=== PATIENT | female | born 1940 | race Caucasian/White ===

== ENCOUNTER → 2018-01-13 14:43 | Outpatient (CLI) | payer MEDICARE, SELFPAY ==
--- NOTE | 2018-01-13 | DI.MG.S_ITS ---
BILATERAL DIGITAL SCREENING MAMMOGRAM 3D/2D WITH CAD: 01/13/2018 CLINICAL: Routine screening. Comparison is made to exams dated: 12/31/2016 mammogram, 09/12/2015 mammogram, and 06/20/2014 mammogram - [facility]. The tissue of both breasts is predominantly fatty. Current study was also evaluated with a Computer Aided Detection (CAD) system. No significant masses, calcifications, or other findings are seen in either breast. There has been no significant interval change. IMPRESSION: NEGATIVE There is no mammographic evidence of malignancy. A 1 year screening mammogram is recommended. This exam was interpreted at Station ID: [id number]. NOTE: For mammograms, a report in lay terms will be sent to the patient. Approximately 15% of breast malignancies will not be visualized mammographically. In the management of a palpable breast mass, a negative mammogram must not discourage biopsy of a clinically suspicious lesion. Electronically Signed By: Armida [email or web address]:01/13/2018 15:34:14 letter sent: Normal Exam ACR BI-RADS Category 1: Negative [id number]
== END ==
PROVIDERS: PCP Family Medicine; Visit Provider Family Medicine
DX: Z12.31 Encounter for screening mammogram for malignant neoplasm of breast (principal)
CPT/HCPCS: 77063; 77067

== ENCOUNTER 2018-04-01 10:36 | Emergency (ER) | payer MEDICARE, SELFPAY ==
[2018-04-01] VITALS (7 sets, daily range): BP systolic 122–143; BP diastolic 45–60; PULSE 63–95; RESP 12–21; TEMP 36.1; O2SAT 93–95; BMI 32.8
[2018-04-01] MEDS: SODIUM CHLORIDE 0.9% 1,000 ML 1000 ML IV (10:17)
[2018-04-01 10:55] LABS: Add Manual Diff / Slide Review NO; Basophils Percent Auto 0.8 % (0-2); Hematocrit 45.1 % (36-46); Hemoglobin 15.6 g/dL (12.0-16.0); Lymphocytes Percent Auto 22.8 % (25-40); Mean Corpuscular HGB Conc 34.5 % (30-36); Mean Corpuscular Hemoglobin 30.9 PG (26-34); Mean Corpuscular Volume 89.4 fL (80-100); Monocytes Percent Auto 15.6 % (3-14); Neutrophils Absolute Auto 2800 /uL (3000-5900); Neutrophils Percent Auto 54.8 % (50-75); Platelet Count 200 X10^3/uL (150-400); Red Blood Cell Count 5.04 X10^6/uL (4.0-5.2); Red Cell Distribution Width 13.4 % (11.6-14.8)
[2018-04-01 11:01] LABS: Alanine Aminotransferase 108 IU/L (9-52); Albumin 3.7 g/dL (3.5-5.0); Albumin Globulin Ratio 1.2 (1.0-2.8); Alkaline Phosphatase 105 U/L (38-126); Aspartate Aminotransferase 69 IU/L (14-36); BUN Creatinine Ratio 28.8 (6-22); Bilirubin Total 0.7 mg/dL (0.2-1.3); Blood Urea Nitrogen 23 mg/dL (7-17); Calcium 8.9 mg/dL (8.4-10.2); Carbon Dioxide 28 mmol/L (22-32); Chloride 103 mmol/L (98-107); Estimated Glomerular Filt Rate > 60.0 mL/min (>60); Globulin 3.1 g/dL (1.7-4.1); Glucose 119 mg/dL (80-110); HEMOLYSIS 18 (0-50); Lipase 32 U/L (23-300); Potassium 3.8 mmol/L (3.4-5.1); Sodium 142 mmol/L (137-145); Total Protein 6.8 g/dL (6.3-8.2)
--- NOTE | 2018-04-01 11:01 | ED_ITS ---
HPI - Nausea/Vomiting/Diarrhea General Chief complaint: Nausea/Vomiting/Diarrhea Stated complaint: n/v/d x 4 days Time Seen by Provider: 04/01/18 11:01 Source: patient Mode of arrival: EMS Limitations: no limitations History of Present Illness HPI Narrative: 77-year-old female here for evaluation of 3-4 days of nausea vomiting diarrhea and decreased appetite. No recent travel. Does take an antibiotic on a regular basis. No abdominal pain. No blood in her stool. States she has not eaten anything in the past couple days secondary to the nausea. Has very had very little oral intake of fluids. No fevers. Does not have any nausea medication at home. States she felt very lightheaded this morning and had some tingling in her fingers. Related Data Home Medications Medication Instructions Recorded Confirmed alprazolam 0.25 mg PO HS #0 tab 02/26/13 fluticasone 2 spray INTRANASAL QDAY #0 spray 02/26/13 levothyroxine 0.137 mg PO QAM #0 02/26/13 omeprazole 40 mg PO BID #0 cap 02/26/13 oxybutynin chloride 5 mg PO BID #0 07/29/16 albuterol sulfate [Proventil HFA] 1 puff INH PRN #0 08/18/16 aspirin 4 tab PO QDAY #0 08/18/16 clobetasol 1 adryan TOPICAL BIDP PRN #0 08/18/16 diphenoxylate-atropine 1 tab PO PRN PRN #0 08/18/16 furosemide 20 mg PO QDAY #0 08/18/16 hyoscyamine sulfate 0.25 mg BID #0 08/18/16 loratadine [Claritin] 10 mg PO QDAY #0 08/18/16 ofloxacin 1 drp OPHTH PRN #0 08/18/16 propranolol 20 mg PO TID #0 08/18/16 [DHEA] 100 mg PO BID #0 01/27/17 [ECHINACEA] 400 mg PO QID #0 01/27/17 [PREGNENOLONE] 50 mg PO QDAY #0 01/27/17 [TRIPLE FLEX] #0 01/27/17 docusate sodium #0 01/27/17 melatonin 10 mg PO HS #0 01/27/17 meloxicam [Mobic] 7.5 mg PO QPM #0 01/27/17 meloxicam [Mobic] 15 tab PO AMCC #0 01/27/17 omega 4-bmg-kmb-fish oil [Fish Oil] 1,000 mg PO BID #0 01/27/17 pseudoephedrine HCl [Sudafed 12 120 mg PO Q12HP PRN #0 01/27/17 Hour] Previous Rx's Medication Instructions Recorded nitroglycerin [Nitrostat] 0.4 mg SUBLINGUAL PRN PRN #100 tab 07/29/16 ondansetron [Zofran ODT] 4 mg PO Q6-8H PRN #10 tab 04/01/18 Allergies Allergy/AdvReac Type Severity Reaction Status Date / Time morphine [MORPHINE] Allergy Unknown Unverified 09/21/17 11:58 oxycodone [OXYCODONE] Allergy Unknown Unverified 09/21/17 11:58 codeine [CODEINE] AdvReac Intermediate VERTIGO Unverified 04/01/18 10:53 hydrocodone [HYDROCODONE] AdvReac Intermediate VERTIGO Unverified 04/01/18 10:53 tramadol [TRAMADOL] AdvReac Intermediate NAUSEA Unverified 04/01/18 10:53 gabapentin AdvReac Mild Doesn't Verified 04/01/18 10:53 work Review of Systems Constitutional Denies fever(s) and Denies headache(s) Eyes Denies change in vision ENT Ears, Nose, Mouth, and Throat: Denies vertigo, Reports dizziness and Denies headache(s) Cardiovascular Denies chest pain, Denies rapid heart rate, Denies irregular heart rhythm, Denies palpitations and Denies dyspnea Respiratory Denies cough and Denies dyspnea Gastrointestinal Gastrointestinal: Denies melena, Denies bloating, Denies hematochezia, Reports change in bowel habits, Denies constipation, Reports diarrhea, Reports nausea and Reports vomiting Genitourinary Denies dysuria Musculoskeletal Denies myalgias, Denies arthralgias and Reports tingling Integumentary/Breasts Denies lesions and Denies rash Neurologic Denies vertigo, Reports dizziness, Denies headache(s) and Reports tingling Endocrine Denies palpitations PFSH Medical History Gastroesophageal reflux disease (Acute) Hypertension (Acute) Hypothyroid (Acute) Surgical History No pertinent past surgical history (Acute) Social History Smoking Status: Current every day smoker Exam Initial Vital Signs Initial Vital Signs: Vital Signs Pulse Rate 63 04/01/18 10:17 Respiratory Rate 19 04/01/18 10:17 Blood Pressure 124/45 L 04/01/18 10:17 Pulse Oximetry 94 04/01/18 10:17 Const General: cooperative, comfortable, well developed, well groomed and No acute distress Orientation: alert, awake and oriented x3 HENMT Head: normal to inspection and normocephalic Mouth: other (Dry mucous membranes) Resp Effort & Inspection: normal respiratory effort Auscultation: clear to auscultation bilaterally Cardio Rate: regular rate Rhythm: regular rhythm Pulses: radial pulses present GI Inspection: non-distended Palpation: soft, No firm and No tender Skin General: no rashes or lesions noted Lesions: no lesions Rashes: no rashes Neuro General: alert, awake and oriented x3 Cognition: normal cognition Speech: speech normal Motor: muscle tone normal throughout Sensory Exam: no sensory deficits noted Extrem General: normal to inspection and capillary refill normal Other: Right lower extremity swollen compared to left lower extremity patient states this is not new Psych Appearance: grossly normal and well kempt Course Orders Ordered: ED Orders 04/01/18 10:10 Complete Blood Count AUTO DIFF Stat Comprehensive Metabolic Panel Stat Lipase Stat 04/01/18 10:29 EKG-12 Lead Routine Discontinued Medications Sodium Chloride (Normal Saline 0.9%) 1,000 mls @ 1,000 mls/hr IV BOLUS ONE Stop: 04/01/18 12:22 Last Infusion: 04/01/18 12:56 Dose: 0 mls/hr Admin: 04/01/18 10:17 Dose: 1,000 mls/hr Ondansetron HCl (Zofran) 4 mg IV NOW ONE Stop: 04/01/18 10:50 Last Admin: 04/01/18 12:34 Dose: Vital Signs - 8 hr 04/01/18 10:17 04/01/18 10:39 04/01/18 11:00 Temperature 97 F L Pulse Rate 63 66 Respiratory Rate 19 12 Blood Pressure 124/45 L Blood Pressure [Right Arm] 122/57 L Pulse Oximetry 94 93 04/01/18 11:30 04/01/18 12:00 04/01/18 12:30 Temperature Pulse Rate 72 89 63 Respiratory Rate 14 21 13 Blood Pressure Blood Pressure [Right Arm] 143/51 H 125/49 L 132/60 Pulse Oximetry 95 94 94 04/01/18 13:15 Temperature Pulse Rate 95 H Respiratory Rate 20 Blood Pressure Blood Pressure [Right Arm] 131/45 L Pulse Oximetry 95 MDM - Nausea/Vomiting/Diarrhea Lab Data Attestation: I reviewed the patient's lab results. Result diagrams: 04/01/18 10:10 04/01/18 10:10 Lab Results 04/01/18 04/01/18 Range/Units 10:10 10:10 WBC 5.0 (4.5-11.0) X10^3/uL RBC 5.04 (4.0-5.2) X10^6/uL Hgb 15.6 (12.0-16.0) g/dL Hct 45.1 (36-46) % MCV 89.4 (80-100) fL MCH 30.9 (26-34) PG MCHC 34.5 (30-36) % RDW 13.4 (11.6-14.8) % Plt Count 200 (150-400) X10^3/uL Neut % (Auto) 54.8 (50-75) % Lymph % (Auto) 22.8 L (25-40) % [place] % (Auto) 15.6 H (3-14) % Eos % (Auto) 6.0 H (2-4) % Baso % (Auto) 0.8 (0-2) % Neut # (Auto) 2800 L (4688-2993) /uL Sodium 142 (137-145) mmol/L Potassium 3.8 (3.4-5.1) mmol/L Chloride 103 (98-107) mmol/L Carbon Dioxide 28 (22-32) mmol/L BUN 23 H (7-17) mg/dL Creatinine 0.80 (0.52-1.04) mg/dL Estimated GFR > 60.0 (>60) mL/min BUN/Creatinine Ratio 28.8 H (6-22) Glucose 119 H (80-110) mg/dL Calcium 8.9 (8.4-10.2) mg/dL Total Bilirubin 0.7 (0.2-1.3) mg/dL AST 69 H (14-36) IU/L ALT 108 H (9-52) IU/L Alkaline Phosphatase 105 (38-126) U/L Total Protein 6.8 (6.3-8.2) g/dL Albumin 3.7 (3.5-5.0) g/dL Globulin 3.1 (1.7-4.1) g/dL Albumin/Globulin Ratio 1.2 (1.0-2.8) Lipase 32 (23-300) U/L ECG Data Attestation: I personally reviewed and interpreted this ECG as follows: Prior ECG tracings: available for review Interpretation: Sinus rhythm Ventricular rate is 69 Normal axis Normal QRS Normal QTC One PVC Comparison EKG dated 01/27/2017 Today's EKG unchanged from previous MDM Narrative Medical decision making narrative: Patient stated that she felt much better after fluids here in the emergency department. She was able to tolerate oral intake of crackers and water. She has a benign abdominal exam. Has not had any diarrhea since being here in the emergency department. I do suspect that her symptoms are related to mild dehydration. We did discuss the importance of increasing her fluid intake. No indication for an acute admission to the hospital. She was given return precautions. She expressed understanding and agreement plan. Discharge Plan Departure Patient Disposition: Home Clinical Impression: Dehydration, Diarrhea, Nausea & vomiting Instructions: DI for Dehydration -- Adult, Nausea and Vomiting-Adult Activity Restrictions/Additional Instructions: Increase your fluid intake. Eat a bland diet. Take the nausea medication as directed as needed. Return to the emergency department for any new or worsening symptoms Prescriptions: New ondansetron [Zofran ODT] 4 mg tablet,disintegrating 4 mg PO Q6-8H PRN (Reason: nausea and vomiting) Qty: 10 RF: 0 No Action levothyroxine 137 MCG tablet 0.137 mg PO QAM Qty: 0 RF: 0 fluticasone 16 GM spray,suspension 2 spray Intranasal QDAY Qty: 0 RF: 0 alprazolam 0.25 MG tablet 0.25 mg PO HS Qty: 0 RF: 0 omeprazole 20 MG capsule,delayed release(DR/EC) 40 mg PO BID Qty: 0 RF: 0 oxybutynin chloride 5 MG tablet 5 mg PO BID Qty: 0 RF: 0 nitroglycerin [Nitrostat] 0.4 MG tablet, sublingual 0.4 mg Sublingual PRN PRNQty: 100 RF: 0 loratadine [Claritin] 10 MG tablet 10 mg PO QDAY Qty: 0 RF: 0 hyoscyamine sulfate 0.125 MG tablet 0.25 mg BID Qty: 0 RF: 0 propranolol 10 MG tablet 20 mg PO TID Qty: 0 RF: 0 ofloxacin 0.3 % drops 1 drp OPHTH PRNQty: 0 RF: 0 albuterol sulfate [Proventil HFA] 90 MCG/PUFF HFA aerosol inhaler 1 puff INH PRNQty: 0 RF: 0 furosemide 20 MG tablet 20 mg PO QDAY Qty: 0 RF: 0 aspirin 81 MG tablet,delayed release (DR/EC) 4 tab PO QDAY Qty: 0 RF: 0 diphenoxylate-atropine 2.5 MG/0.025 MG tablet 1 tab PO PRN PRNQty: 0 RF: 0 clobetasol 0.05 % lotion 1 adryan Topical BIDP PRNQty: 0 RF: 0 meloxicam [Mobic] 7.5 MG tablet 15 tab PO AMCC Qty: 0 RF: 0 meloxicam [Mobic] 7.5 MG tablet 7.5 mg PO QPM Qty: 0 RF: 0 pseudoephedrine HCl [Sudafed 12 Hour] 120 MG tablet extended release 120 mg PO Q12HP PRNQty: 0 RF: 0 docusate sodium 100 MG capsule Qty: 0 RF: 0 [DHEA] 100 mg PO BID Qty: 0 RF: 0 [PREGNENOLONE] 50 mg PO QDAY Qty: 0 RF: 0 [TRIPLE FLEX] Qty: 0 RF: 0 omega 9-kxr-wgk-fish oil [Fish Oil] 1,000 MG capsule 1,000 mg PO BID Qty: 0 RF: 0 melatonin 10 MG capsule 10 mg PO HS Qty: 0 RF: 0 [ECHINACEA] 400 mg PO QID Qty: 0 RF: 0
== END 2018-04-01 13:50 | disposition home or self-care (01) ==
PROVIDERS: Emergency Provider Emergency Medicine; PCP Family Medicine
DX: E86.0 Dehydration (principal); R11.2 Nausea with vomiting, unspecified; R19.7 Diarrhea, unspecified
CPT/HCPCS: 36591; 80053; 83690; 85025; 93005; 93010; 96360; 96361; 99283; 99284

== ENCOUNTER → 2018-06-27 14:09 | Outpatient (CLI) | payer MEDICARE, SELFPAY ==
--- NOTE | 2018-06-27 | DI.MRI.S_ITS ---
PROCEDURE: MR LUMBAR SPINE WO CON INDICATIONS: LOW BACK PAIN TECHNIQUE: Noncontrast sagittal T1 spin echo and T2 fast echo, sagittal STIR, axial T1 and T2 fast spin echo through the lumbar spine. In this patient, coronal T2-weighted images were also performed. COMPARISON: [facility], MR, L-SPINE WITHOUT CONTRAST, 11/05/2015, 14:15. [facility], MR, L-SPINE WITHOUT CONTRAST, 11/16/2012, 7:51. [facility], MR, L-SPINE WITHOUT CONTRAST, 04/25/2015, 18:08. FINDINGS: Image quality: Excellent. Alignment and Curvature: There is mild grade 1 anterolisthesis at the L3-L4 level, as before. No definite associated pars defects can be seen. Mild dextroconvex scoliotic curvature is seen. Bone Marrow: Marrow is of normal overall signal. Within the L3 vertebral body anteriorly, there is a stable focus seen that is hypointense on T1-weighted and T2-weighted imaging and minimally hyperintense on STIR imaging. This has minimally progressed compared to 2013. No acute vertebral body compression fractures. Spinal Cord: Conus medullaris terminates at the L1 level. Visualized cord demonstrates normal signal and size. Paraspinous Soft Tissues: No paravertebral masses. T12-L1: Normal appearance. L1-L2: The disc height is well-preserved. Loss of disc signal is seen at this level. Mild generalized disc bulge is seen. Minimal bilateral neural foraminal narrowing is seen. No significant central canal narrowing is seen. When comparison is made with the prior examination, these findings are similar. L2-L3: The disc height is well-preserved. Loss of disc signal is seen at this level. Moderate disc bulge is seen, which is eccentric to the right. Moderate facet hypertrophy is seen, with associated moderate hypertrophy of the ligamentum flavum. There is mild to moderate left-sided and severe right-sided neural foraminal narrowing seen. Mild central canal narrowing is seen. L3-L4: The disc height is well-preserved. Loss of disc signal is seen at this level. Moderate disc bulge is seen, which is eccentric to the right. Moderate facet hypertrophy is seen, with associated moderate hypertrophy of the ligamentum. There is a synovial cyst seen along the medial aspect of the right facet, as on series 6 image 20 that measures 8 mm. The synovial cyst has developed since 2015. There is associated moderate central canal narrowing. Moderate bilateral neural foraminal narrowing is seen, left worse than right. L4-L5: The disc height is well-preserved. Loss of disc signal is seen at this level. Mild generalized disc bulge is seen. Moderate to prominent facet hypertrophy is seen. [id number]-[id number] bilateral neural foraminal narrowing is seen. No significant central canal narrowing is seen. When comparison is made with the prior examination, these findings are similar. L5-S1: Mild loss of disc height is seen. Loss of disc signal is seen. Moderate disc bulge is seen, which is eccentric to the right. Moderate facet joint hypertrophy is seen. Moderate bilateral neural foraminal narrowing is seen. Mild central canal narrowing is seen. When comparison is made with the prior examination, these findings are similar. IMPRESSION: Multiple levels of lumbar spine degenerative change are seen, which are relatively similar when compared to the 2016 images. However, there has been interval development of a right-sided synovial cyst at the L3-L4 level. Minimal progression of a bone marrow lesion at L3 level. Differential diagnosis for this lesion includes a metastasis. At clinical discretion, please consider a whole body nuclear medicine bone scan for further evaluation. Dictated by: Dharmesh Cardsoo M.D. on 06/27/2018 at 15:08 Approved by: Dharmesh Cardoso M.D. on 06/27/2018 at 15:20
== END ==
PROVIDERS: PCP Family Medicine; Visit Provider Family Medicine
DX: M54.5 Low back pain (principal); M47.816 Spondylosis without myelopathy or radiculopathy, lumbar region; M71.38 Other bursal cyst, other site; D75.9 Disease of blood and blood-forming organs, unspecified
CPT/HCPCS: 72148

== ENCOUNTER 2019-03-01 10:21 | Emergency (ER) | payer MEDICARE, SELFPAY ==
[2019-03-01 10:25] VITALS: BP 137/78; PULSE 67; RESP 20; TEMP 36.7; O2SAT 97
[2019-03-01 11:02] VITALS: BP 101/52; PULSE 68; RESP 16; O2SAT 93
--- NOTE | 2019-03-01 11:19 | DI.RAD.S_ITS ---
PROCEDURE: XR CHEST 1V INDICATIONS: chest pain TECHNIQUE: One view of the chest was acquired. COMPARISON: [facility], , CHEST 1 VIEW, 01/27/2017, 14:46. FINDINGS: Surgical changes and devices: Cervical fixation plate and screws. Lungs and pleura: Minimal increased vascularity. No pleural effusions or pneumothorax. Mediastinum: Mediastinal contours appear normal. Heart size is normal. Bones and chest wall: No suspicious bony lesions. Overlying soft tissues appear unremarkable. IMPRESSION: Minimal increased vascularity possibly related to vascular crowding or edema. Dictated by: Tamera Byrne M.D. on 03/01/2019 at 11:53 Approved by: Tamera Byrne M.D. on 03/01/2019 at 11:54
[2019-03-01 11:33] LABS: Add Manual Diff / Slide Review NO; Basophils Absolute Auto 0 /uL (0-100); Basophils Percent Auto 0.6 % (0-2); Eosinophils Absolute Auto 300 /uL (0-450); Eosinophils Percent Auto 5.5 % (2-4); Hematocrit 44.4 % (36-46); Hemoglobin 15.4 g/dL (12.0-16.0); Lymphocytes Absolute Auto 1100 /uL (1100-4500); Lymphocytes Percent Auto 22.5 % (25-40); Mean Corpuscular HGB Conc 34.6 % (30-36); Mean Corpuscular Hemoglobin 31.2 PG (26-34); Mean Corpuscular Volume 90.1 fL (80-100); Monocytes Absolute Auto 700 /uL (0-900); Monocytes Percent Auto 14.9 % (3-14); Neutrophils Absolute Auto 2800 /uL (1500-7000); Neutrophils Percent Auto 56.5 % (50-75); Platelet Count 189 X10^3/uL (150-400); Red Blood Cell Count 4.93 X10^6/uL (4.0-5.2); Red Cell Distribution Width 13.4 % (11.6-14.8)
--- NOTE | 2019-03-01 11:41 | ED.CHESTPAIN ---
HPI - Chest Pain General Chief Complaint: Chest Pain Stated Complaint: chest pain Time Seen by Provider: 03/01/19 10:32 Source: patient Mode of arrival: Ambulatory Limitations: no limitations History of Present Illness HPI narrative: Patient comes emergency department complaining episodes of chest pain that have been happening over the last month or so. She states she had these a few years back, but they seem to go away for awhile. She states that she was told her pain was due to esophageal spasm, and that it usually goes away when she drinks water. She does, however, have nitroglycerin, which she was given when she was having the episodes a couple of years ago. She states it is , but she still feels as though it works. However, did not seem to help today. Patient states that she has had substernal chest pain which does not radiate. She denies any associated symptoms, such as shortness of breath, nausea, and diaphoresis. No lightheadedness. Patient denies any pain currently and states this completely resolved. Today's episode started at 9:30 a.m., and patient came to the emergency department because it did not seem like the pain was resolving as quickly as usual. Related Data Home Medications Medication Instructions Recorded Confirmed alprazolam 0.25 mg PO TID PRN #0 tab 02/26/13 03/01/19 fluticasone propionate 1 spray INTRANASAL BID #0 spray 02/26/13 03/01/19 oxybutynin chloride 5 mg PO BID #0 07/29/16 03/01/19 aspirin 4 tab PO DAILY #0 08/18/16 03/01/19 furosemide 20 mg PO DAILY #0 08/18/16 03/01/19 loratadine [Claritin] 10 mg PO DAILY #0 08/18/16 03/01/19 propranolol 20 mg PO TID #0 08/18/16 03/01/19 [PREGNENOLONE] 50 mg PO DAILY #0 01/27/17 03/01/19 echinacea 400 mg PO QID #0 01/27/17 03/01/19 glucosamine RVr-jmv-tvytreoaxu 2 tab PO DAILY #0 01/27/17 03/01/19 [TripleFlex] melatonin 10 mg PO BEDTIME PRN #0 01/27/17 03/01/19 meloxicam [Mobic] 7.5 mg PO QPM #0 01/27/17 03/01/19 meloxicam [Mobic] 15 tab PO AMCC #0 01/27/17 03/01/19 omega 0-feg-htz-fish oil [Fish Oil] 1,000 mg PO BID #0 01/27/17 03/01/19 prasterone (dhea) [DHEA] 100 mg PO DAILY #0 01/27/17 03/01/19 pseudoephedrine HCl [Sudafed 12 120 mg PO Q12HP PRN #0 01/27/17 03/01/19 Hour] albuterol sulfate [ProAir HFA] 2 puff INHALATION Q4H PRN 03/01/19 03/01/19 ascorbic acid (vitamin C) 1 g PO Q6H 03/01/19 03/01/19 calcium carbonate-vitamin D3 4 tab PO DAILY 03/01/19 03/01/19 cholecalciferol (vitamin D3) 15,000 unit PO DAILY 03/01/19 03/01/19 [Vitamin D3] cyanocobalamin (vitamin B-12) 2,000 mcg PO DAILY 03/01/19 03/01/19 [Vitamin B-12] gabapentin 100 mg PO TID 03/01/19 03/01/19 ketoconazole 1 applic TOPICAL DAILY PRN 03/01/19 03/01/19 levothyroxine 125 mcg PO DAILY 03/01/19 03/01/19 meclizine 25 mg PO Q8H PRN 03/01/19 03/01/19 multivitamin with minerals 1 tab PO DAILY 03/01/19 03/01/19 omeprazole 40 mg PO BID 03/01/19 03/01/19 ranitidine HCl 150 mg PO BEDTIME 03/01/19 03/01/19 Allergies Allergy/AdvReac Type Severity Reaction Status Date / Time morphine [MORPHINE] Allergy Unknown Unverified 09/21/17 11:58 oxycodone [OXYCODONE] Allergy Unknown Unverified 09/21/17 11:58 codeine [CODEINE] AdvReac Intermediate VERTIGO Unverified 04/01/18 10:53 hydrocodone [HYDROCODONE] AdvReac Intermediate VERTIGO Unverified 04/01/18 10:53 tramadol [TRAMADOL] AdvReac Intermediate NAUSEA Unverified 04/01/18 10:53 gabapentin AdvReac Mild Doesn't Verified 04/01/18 10:53 work Review of Systems Constitutional Constitutional: Denies chills, Denies fatigue, Denies fever(s), Denies frequent falls, Denies lethargy and Denies weakness Eyes Eyes: Denies change in vision, Denies eye discharge, Denies irritation and Denies loss of vision ENT Ears, Nose, Mouth, and Throat: Denies change in voice, Denies dizziness, Denies neck pain, Denies sore throat and Denies throat swelling Cardiovascular Cardiovascular: Reports chest pain, Denies irregular heart rhythm, Denies lightheadedness, Denies palpitations, Denies dyspnea, Denies dyspnea on exertion and Denies orthopnea Respiratory Respiratory: Denies cough, Denies dyspnea, Denies dyspnea on exertion and Denies wheezing Gastrointestinal Gastrointestinal: Denies abdominal pain, Denies change in bowel habits, Denies diarrhea, Denies nausea and Denies vomiting Genitourinary Genitourinary: Denies hematuria, Denies flank pain, Denies urinary incontinence and Denies urinary urgency Musculoskeletal Musculoskeletal: Denies back pain, Denies muscle weakness, Denies neck pain, Denies numbness and Denies tingling Integumentary/Breasts Skin/Breast: Denies pruritus, Denies erythema, Denies rash and Denies wounds Neurologic Neurologic: Denies behavioral changes, Denies confusion, Denies dizziness, Denies frequent falls, Denies loss of vision, Denies numbness, Denies tingling and Denies weakness Psychiatric Psychiatric: Denies anxiety, Denies behavioral changes, Denies confusion, Denies depression, Denies homicidal ideation and Denies suicidal ideation Endocrine Endocrine: Denies fatigue, Denies flushing and Denies palpitations Hematologic/Lymphatic Hematologic/Lymphatic: Denies easy bruising Allergic/Immunologic Allergic/Immunologic: Denies urticaria, Denies throat swelling and Denies wheezing PFSH Medical History Gastroesophageal reflux disease (Acute) Hypertension (Acute) Hypothyroid (Acute) Surgical History No pertinent past surgical history (Acute) Social History Smoking Status: Current every day smoker Social History Smoking Status: Current every day smoker Exam Initial Vital Signs Initial Vital Signs: Vital Signs Temperature 98.1 F 03/01/19 10:25 Pulse Rate 67 03/01/19 10:25 Respiratory Rate 20 03/01/19 10:25 Blood Pressure 137/78 03/01/19 10:25 Pulse Oximetry 97 03/01/19 10:25 Const General: cooperative and well developed Nutritional Appearance: well nourished Orientation: alert, awake, oriented x3 and not confused [facility] Head: normocephalic and atraumatic Ears: external ears normal Nose: external nose normal and No nasal discharge Face and sinus: face symmetric and No dry mucous membranes Mouth: oral mucosae normal and moist mucous membranes Teeth and gingiva: dentition normal Eyes General: appearance normal, both eyes and all related structures Eyelids: eyelids normal Conjunctivae: conjunctivae normal Sclera: sclerae normal Pupils: PERRL EOM: EOM intact bilaterally Neck Neck: normal visual inspection, trachea midline, No lymphadenopathy, No midline deformity and No JVD Lymphatic: No lymphedema Chest Chest: normal inspection of the chest Resp Effort & Inspection: normal respiratory effort, able to speak in complete sentences, no respiratory distress and no use of accessory muscles Auscultation: clear to auscultation bilaterally, no rales, no rhonchi and no wheezes Cardio Rate: regular rate Rhythm: regular rhythm Heart Sounds: no click, no gallops, no murmurs and no rubs Pulses: normal peripheral pulses GI Inspection: non-distended Palpation: soft, no hepatosplenomegaly, No guarding, No pulsatile mass and No tender Auscultation: normal bowel sounds Back/Spine/Pelvis Back: No CVA tenderness Cervical Spine: cervical ROM normal and No pain with cervical ROM Thoracic/Lumbar Spine: thoracic and lumbar spine normal to inspection Skin General: no rashes or lesions noted, No jaundice and No petechiae Neuro General: alert, oriented x3, gait normal and no focal motor deficits Speech: speech normal Extrem General: full ROM, no clubbing, cyanosis or edema, no pedal edema and no calf tenderness Psych Appearance: well kempt Mental Status: mental status grossly normal Attitude: cooperative Thought Content: normal and suicidality Judgment: judgment good Course Course Course Narrative: Patient was feeling much better upon evaluation, and pain episodes were chronic. Her EKG was unremarkable for acute changes. She was worked up with laboratory studies, which were unremarkable. I have discussed with the patient that she will need to follow up with her primary care physician to discuss further management and workup of her symptoms. She may need to have another stress test done. We have discussed home management of the symptoms, as well as the usual indications for return. Orders Ordered: ED Orders 03/01/19 11:19 XR chest 1V Stat 03/01/19 11:20 Complete Blood Count AUTO DIFF Stat Comprehensive Metabolic Panel Stat Troponin & CK Cardiac Panel Stat Vital Signs Vital signs: Vital Signs - 8 hr 03/01/19 12:53 Pulse Rate 76 Respiratory Rate 16 Blood Pressure 110/56 L Pulse Oximetry 97 MDM - Chest Pain Medical Records Data Attestation: I reviewed the patient's medical records. Lab Data Attestation: I reviewed the patient's lab results. Result diagrams: 03/01/19 11:20 03/01/19 11:20 Labs: Lab Results 03/01/19 03/01/19 Range/Units 11:20 11:20 WBC 5.0 (4.5-11.0) X10^3/uL RBC 4.93 (4.0-5.2) X10^6/uL Hgb 15.4 (12.0-16.0) g/dL Hct 44.4 (36-46) % MCV 90.1 (80-100) fL MCH 31.2 (26-34) PG MCHC 34.6 (30-36) % RDW 13.4 (11.6-14.8) % Plt Count 189 (150-400) X10^3/uL Neut % (Auto) 56.5 (50-75) % Lymph % (Auto) 22.5 L (25-40) % [place] % (Auto) 14.9 H (3-14) % Eos % (Auto) 5.5 H (2-4) % Baso % (Auto) 0.6 (0-2) % Neut # (Auto) 2800 (1212-8680) /uL Lymph # (Auto) 1100 (5571-3643) /uL [place] # (Auto) 700 (0-900) /uL Eos # (Auto) 300 (0-450) /uL Baso # (Auto) 0 (0-100) /uL Sodium 136 L (137-145) mmol/L Potassium 4.7 (3.4-5.1) mmol/L Chloride 100 (98-107) mmol/L Carbon Dioxide 27 (22-32) mmol/L BUN 25 H (7-17) mg/dL Creatinine 0.80 (0.52-1.04) mg/dL Estimated GFR > 60.0 (>60) mL/min BUN/Creatinine Ratio 31.3 H (6-22) Glucose 101 (80-110) mg/dL Calcium 9.2 (8.4-10.2) mg/dL Total Bilirubin 0.7 (0.2-1.3) mg/dL AST 57 H (14-36) IU/L ALT 36 (9-52) IU/L Alkaline Phosphatase 97 (38-126) U/L Total Creatine Kinase 47 (30-135) U/L CK-MB (CK-2) TNP CK-MB (CK-2) Rel Index TNP Troponin I < 0.012 (0.01-0.034) ng/mL Total Protein 7.1 (6.3-8.2) g/dL Albumin 4.0 (3.5-5.0) g/dL Globulin 3.1 (1.7-4.1) g/dL Albumin/Globulin Ratio 1.3 (1.0-2.8) Imaging Data Chest x-ray: Radiologist's impression: PROCEDURE: XR CHEST 1V INDICATIONS: chest pain TECHNIQUE: One view of the chest was acquired. COMPARISON: [facility], CHEST 1 VIEW, 01/27/2017, 14:46. FINDINGS: Surgical changes and devices: Cervical fixation plate and screws. Lungs and pleura: Minimal increased vascularity. No pleural effusions or pneumothorax. Mediastinum: Mediastinal contours appear normal. Heart size is normal. Bones and chest wall: No suspicious bony lesions. Overlying soft tissues appear unremarkable. IMPRESSION: Minimal increased vascularity possibly related to vascular crowding or edema. Dictated by: Tamera Byrne M.D. on 03/01/2019 at 11:53 Approved by: Tamera Byrne M.D. on 03/01/2019 at 11:54 ECG Data Attestation: I personally reviewed and interpreted this ECG as follows: (See below) Interpretation: Twelve lead EKG performed March 01, 2019 at 10:25 a.m., as follows: Regular ventricular rhythm with a rate of 73 beats per minute MD interval 149 milliseconds QRS duration 105 milliseconds QTC interval 405 milliseconds Occasional ectopy No significant ST T wave changes Interpretation: Normal sinus rhythm with occasional PVCs; inferior VT, probably old; no signs of acute ischemia; abnormal EKG as interpreted by ED MD. Discharge Plan Departure Patient Disposition: Home Clinical Impression: Chest pain Qualifiers: Chest pain type: other chest pain Qualified Code(s): R07.89 - Other chest pain Discharge Date/Time: 03/01/19 12:54 Instructions: DI for Chest Pain Activity Restrictions/Additional Instructions: Your labs look good. There is no evidence of a serious, acute condition at this time. However, it is very important that you follow up with your primary care physician to be sure that your ongoing chest pains are not an indicator of coronary artery disease. There is no evidence of heart attack today, but you may have some blockages that are causing angina. As such, you should speak with primary care about having another stress test done at some point in the near future. It is also very possible that this pain has nothing to do with your heart and may be related to a benign condition such as esophageal spasm. Following up with your doctor can help sort this out. Prescriptions: No Action fluticasone propionate 16 GM spray,suspension 1 spray Intranasal BID Qty: 0 RF: 0 alprazolam 0.25 MG tablet 0.25 mg PO TID PRN (Reason: Anxiety) Qty: 0 RF: 0 oxybutynin chloride 5 MG tablet 5 mg PO BID Qty: 0 RF: 0 loratadine [Claritin] 10 MG tablet 10 mg PO DAILY Qty: 0 RF: 0 propranolol 10 MG tablet 20 mg PO TID Qty: 0 RF: 0 furosemide 20 MG tablet 20 mg PO DAILY Qty: 0 RF: 0 aspirin 81 MG tablet,delayed release (DR/EC) 4 tab PO DAILY Qty: 0 RF: 0 meloxicam [Mobic] 7.5 MG tablet 15 tab PO AMCC Qty: 0 RF: 0 meloxicam [Mobic] 7.5 MG tablet 7.5 mg PO QPM Qty: 0 RF: 0 pseudoephedrine HCl [Sudafed 12 Hour] 120 MG tablet extended release 120 mg PO Q12HP PRN (Reason: Allergy Symptoms) Qty: 0 RF: 0 DHEA 50 mg Tablet 100 mg PO DAILY Qty: 0 RF: 0 glucosamine HWx-xth-dotwofxzge [TripleFlex] 750-375-400 mg Tablet 2 tab PO DAILY Qty: 0 RF: 0 [PREGNENOLONE] powder 50 mg PO DAILY Qty: 0 RF: 0 echinacea 400 mg Capsule 400 mg PO QID Qty: 0 RF: 0 omega 4-shv-pnx-fish oil [Fish Oil] 1,000 MG capsule 1,000 mg PO BID Qty: 0 RF: 0 melatonin 10 MG capsule 10 mg PO BEDTIME PRN (Reason: Sleep) Qty: 0 RF: 0 ascorbic acid (vitamin C) 1,000 mg Tablet 1 g PO Q6H RF: 0 cyanocobalamin (vitamin B-12) [Vitamin B-12] 1,000 mcg Tablet 2,000 mcg PO DAILY RF: 0 omeprazole 40 mg capsule,delayed release(DR/EC) 40 mg PO BID RF: 0 meclizine 25 mg Tablet 25 mg PO Q8H PRN (Reason: Dizziness) RF: 0 levothyroxine 125 mcg Tablet 125 mcg PO DAILY RF: 0 ranitidine HCl 150 mg tablet 150 mg PO BEDTIME RF: 0 gabapentin 100 mg Capsule 100 mg PO TID RF: 0 multivitamin with minerals Tablet 1 tab PO DAILY RF: 0 albuterol sulfate [ProAir HFA] 90 mcg/actuation Hfa Aerosol Inhaler 2 puff INHALATION Q4H PRN (Reason: Shortness Of Breath) RF: 0 ketoconazole 2 % Cream 1 applic TOPICAL DAILY PRN (Reason: as directed) RF: 0 calcium carbonate-vitamin D3 500 mg(1,250mg) -200 unit Tablet 4 tab PO DAILY RF: 0 cholecalciferol (vitamin D3) [Vitamin D3] 5,000 unit Tablet 15,000 unit PO DAILY RF: 0 Referrals: Aakash Bender MD [Primary Care Provider] -
[2019-03-01 11:49] LABS: Alanine Aminotransferase 36 IU/L (9-52); Albumin Globulin Ratio 1.3 (1.0-2.8); Alkaline Phosphatase 97 U/L (38-126); Aspartate Aminotransferase 57 IU/L (14-36); BUN Creatinine Ratio 31.3 (6-22); Bilirubin Total 0.7 mg/dL (0.2-1.3); Blood Urea Nitrogen 25 mg/dL (7-17); Calcium 9.2 mg/dL (8.4-10.2); Carbon Dioxide 27 mmol/L (22-32); Chloride 100 mmol/L (98-107); Creatine Kinase 47 U/L (30-135); Estimated Glomerular Filt Rate > 60.0 mL/min (>60); Globulin 3.1 g/dL (1.7-4.1); Glucose 101 mg/dL (80-110); Potassium 4.7 mmol/L (3.4-5.1); Sodium 136 mmol/L (137-145); Total Protein 7.1 g/dL (6.3-8.2)
[2019-03-01 11:51] LABS: HEMOLYSIS 52 (0-50)
[2019-03-01 12:01] LABS: Troponin I < 0.012 ng/mL (0.01-0.034)
[2019-03-01 12:08] VITALS: BP 104/46; PULSE 61; RESP 16; O2SAT 94
[2019-03-01 12:53] VITALS: BP 110/56; PULSE 76; RESP 16; O2SAT 97
== END 2019-03-01 12:54 | disposition home or self-care (01) ==
PROVIDERS: Emergency Provider Emergency Medicine; PCP Family Medicine
DX: R07.89 Other chest pain (principal)
CPT/HCPCS: 36591; 71045; 80053; 82550; 84484; 85025; 93005; 93041; 99283; 99285

== ENCOUNTER → 2019-04-12 09:03 | Outpatient (CLI) | payer MEDICARE, SELFPAY ==
--- NOTE | 2019-04-12 | DI.NM.S_ITS ---
PROCEDURE: NM SEAMUS PERF SPECT R&S PHARM Rest and pharmacological stress myocardial perfusion SPECT with gated imaging and ejection fraction RADIOPHARMACEUTICAL: 25.4 mCi Tc-99m tetrafosmin IV at rest and 24.6 mCi Tc-99m tetrafosmin IV at peak effect of pharmacological stress. Eol-mfk-ddyqqlcl was performed. INDICATIONS: Chest pain, unspecified TECHNIQUE: Radiopharmaceutical was injected at peak stress test, and also at rest. SPECT images were obtained. SPECT myocardial perfusion images were displayed in short axis, horizontal long axis, and vertical long axis views. Gated images were reviewed using [email or web address] software. COMPARISON: None. CARDIAC STRESS: A pharmacologic stress test was performed under the supervision of an attending staff, using an infusion of lexiscan 0.4mg IV X1. Hemodynamic data: There is normal blood pressure and heart rate response to pharmacologic stress. Symptoms: The patient denied anginal chest pain. Aminophylline: none EKG: No diagnostic changes of ischemia; occasional PVCs present ectopy. FINDINGS: Raw data: There is good myocardial uptake of radiotracer. No significant motion artifacts. Vrks-ew-bnmog ratio is 0.31 (normal is less than 0.38 for tetrafosmin tracer). Left ventricle function: Gated images demonstrate normal left ventricular wall thickening. No segmental wall motion abnormalities. No transient ischemic dilation; TID is 1.06 (normal less than 1.3). Left ventricle resting end diastolic volume is 71 mL. Left ventricle stress ejection fraction is 78%; normal range is above 45%. Myocardial perfusion: There is moderate severe fixed apical defect that suggest prior non-transmural infarction but artifact can't be excluded. No ischemia. Prone images not obtained as the patient is unable to do so due to recent back surgery. SSS 6. IMPRESSION: Abnormal pharmaceutical nuclear stress test. No ischemia. 1) Probably prior non-transmural infarct but apical artifact can't be excluded. There is moderate severe fixed apical defect that suggest prior non-transmural infarction but artifact can't be excluded. No ischemia. Prone images not obtained as the patient is unable to do so due to recent back surgery. SSS 6. 2) Normal left ventricular size, wall motion, and systolic function (EF post stress 78%). 3) No ECG evidence of ischemia. 4) No angina during the study. 5) Compared to the nuc stress done 08/16/2016, fixed apical defect is more pronounced on this study. Dictated by: Wei Valle MD on 04/13/2019 at 12:17 Approved by: Wei Valle MD on 04/13/2019 at 12:22
--- NOTE | 2019-04-12 10:46 | PM.TREADMILL ---
Cardiac Stress Test Report Referral & Results Date Patient Seen: 04/12/19 Requesting provider: Christina Padron Indication: Chest discomfort Rest ECG: Unremarkable, frequent PVCs Procedure Note: After both written and verbal informed consent the patient had an IV started by the diagnostic imaging RN, and then was hooked up to the treadmill monitoring system. The Lexiscan material, and then the Cardiolite tracer, were administered sequentially. An additional 3 min was spent monitoring the patient while supine on the gurney. The patient had a normal response to all infused materials. Impression: Frequent PVCs that were multifocal in origin Please see perfusion imaging report for details regarding possible ischemia Please note: Actual ECG tracings can be found in the PACS system.
== END ==
PROVIDERS: Family Provider Family Medicine; PCP Family Medicine; Visit Provider Nurse Practitioner Family
DX: R07.89 Other chest pain (principal); R94.39 Abnormal result of other cardiovascular function study
CPT/HCPCS: 78452; 93016; 93017; 93018; A9502; J2785

== ENCOUNTER → 2019-05-23 09:31 | Outpatient (CLI) | payer MEDICARE, SELFPAY ==
--- NOTE | 2019-05-23 | DI.MG.S_ITS ---
BILATERAL DIGITAL SCREENING MAMMOGRAM 3D/2D WITH CAD: 05/23/2019 CLINICAL: Routine screening. Comparison is made to exams dated: 01/13/2018 mammogram, 12/31/2016 mammogram, and 09/12/2015 mammogram - [facility]. The tissue of both breasts is predominantly fatty. Current study was also evaluated with a Computer Aided Detection (CAD) system. No significant masses, calcifications, or other findings are seen in either breast. There has been no significant interval change. IMPRESSION: NEGATIVE There is no mammographic evidence of malignancy. A 1 year screening mammogram is recommended. This exam was interpreted at Station ID: [id number]. NOTE: For mammograms, a report in lay terms will be sent to the patient. Approximately 15% of breast malignancies will not be visualized mammographically. In the management of a palpable breast mass, a negative mammogram must not discourage biopsy of a clinically suspicious lesion. Electronically Signed By: Marvin charles/[email or web address]:05/23/2019 16:37:13 letter sent: Normal Exam ACR BI-RADS Category 1: Negative [id number]
== END ==
PROVIDERS: PCP Family Medicine; Visit Provider Family Medicine
DX: Z12.31 Encounter for screening mammogram for malignant neoplasm of breast (principal)
CPT/HCPCS: 77063; 77067

== ENCOUNTER → 2019-11-29 16:38 | Outpatient (CLI) | payer MEDICARE, SELFPAY ==
--- NOTE | 2019-11-29 | DI.RAD.S_ITS ---
PROCEDURE: XR HIP W PEL IF DONE LT 2V INDICATIONS: LT HIP PAIN TECHNIQUE: AP pelvis with lateral view(s) of the left hip(s). COMPARISON: [facility], , XR PELVIS W LATERAL HIP LT, 01/01/2016, 14:41. FINDINGS: Bones: No fractures or dislocations. Pelvic ring appears intact. No suspicious bony lesions. Lower lumbar spondylosis. Moderate bilateral hip joint degeneration. Soft tissues: The visualized bowel gas pattern is normal. No suspicious soft tissue calcifications. IMPRESSION: Moderate bilateral hip joint degeneration, which is mildly progressed since 01/01/16.. Dictated by: Fredrick Early M.D. on 11/29/2019 at 17:19 Approved by: Fredrick Early M.D. on 11/29/2019 at 17:21
--- NOTE | 2019-11-29 | DI.RAD.S_ITS ---
PROCEDURE: XR LUMBAR SPINE 2-3V INDICATIONS: LOWER BACK PAIN TECHNIQUE: 3 views of the lumbar spine were acquired. COMPARISON: [facility], , L-SPINE MINIMUM 4 VIEWS, 05/30/2015, 12:01. FINDINGS: Bones: No fracture or focal osseous destruction. Multilevel degenerative endplate sclerosis and spurring. Diffuse facet arthropathy. Grade 1 anterolisthesis of L4 and L5 moderate narrowing of the L5-S1 and L4-L5 disc space. Lower thoracic disc degeneration also noted. Mild dextroscoliosis. Soft tissues: Scattered vascular calcifications seen in the aorta. IMPRESSION: Lower lumbar spondylosis and facet arthropathy, mildly progressed since prior study. Grade 1 anterolisthesis of L4-L5 as before. Dictated by: Fredrick Early M.D. on 11/29/2019 at 17:17 Approved by: Fredrick Early M.D. on 11/29/2019 at 17:19
== END ==
PROVIDERS: Family Provider Family Medicine; PCP Family Medicine; Referring Provider Family Medicine; Visit Provider Family Medicine
DX: M54.5 Low back pain (principal); M25.552 Pain in left hip; M16.0 Bilateral primary osteoarthritis of hip; M47.816 Spondylosis without myelopathy or radiculopathy, lumbar region; M43.16 Spondylolisthesis, lumbar region
CPT/HCPCS: 72100; 73502

== ENCOUNTER → 2020-02-24 14:56 | Outpatient (CLI) | payer MEDICARE, SELFPAY ==
--- NOTE | 2020-02-24 14:59 | DI.RAD.S_ITS ---
PROCEDURE: XR KNEE RT 3V INDICATIONS: BILATERAL KNEE PAIN TECHNIQUE: 3 views of the knee were acquired. COMPARISON: [facility], , KNEE 3V RIGHT, 08/07/2015, 5:04. FINDINGS: Bones: No fractures or dislocations. No suspicious bony lesions. Tricompartment degenerative change. Moderate medial compartment joint space loss. Progressive patellofemoral degenerative change with lateral patellofemoral joint space obliteration. Soft tissues: No joint effusion. No suspicious soft tissue calcifications. 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 No evidence acute bony abnormality of the right knee. If clinical suspicion and/or symptoms persist, further assessment with repeat plain films, or advanced imaging (e.g., CT, MRI, or bone scan) may be helpful for further assessment. Dictated by: Panfilo Green M.D. on 02/24/2020 at 15:12 Approved by: Panfilo Green M.D. on 02/24/2020 at 15:13
--- NOTE | 2020-02-24 14:59 | DI.RAD.S_ITS ---
PROCEDURE: XR KNEE LT 3V INDICATIONS: BILATERAL KNEE PAIN TECHNIQUE: 3 views of the knee were acquired. COMPARISON: [facility], , KNEE 3V RIGHT, 08/07/2015, 5:04. FINDINGS: Bones: No fractures or dislocations. No suspicious bony lesions. Mild degenerative change. Soft tissues: No joint effusion. No suspicious soft tissue calcifications. IMPRESSION: Mild degenerative change. No evidence acute bony abnormality of the left knee. If clinical suspicion and/or symptoms persist, further assessment with repeat plain films, or advanced imaging (e.g., CT, MRI, or bone scan) may be helpful for further assessment. Dictated by: Panfilo Green M.D. on 02/24/2020 at 15:11 Approved by: Panfilo Green M.D. on 02/24/2020 at 15:12
== END ==
PROVIDERS: Family Provider Family Medicine; PCP Family Medicine; Referring Provider Family Medicine; Visit Provider Family Medicine
DX: M25.561 Pain in right knee (principal); M25.562 Pain in left knee; M17.11 Unilateral primary osteoarthritis, right knee
CPT/HCPCS: 73562

== ENCOUNTER → 2020-03-12 09:25 | Outpatient (CLI) | payer MEDICARE, SELFPAY ==
--- NOTE | 2020-03-12 | DI.MRI.S_ITS ---
PROCEDURE: MR LUMBAR SPINE WO CON INDICATIONS: Dorsalgia, unspecified TECHNIQUE: Noncontrast sagittal T1 spin echo and T2 fast echo, sagittal STIR, axial T1 and T2 fast spin echo through the lumbar spine. In cases with scoliosis, additional coronal T2 fast spin echo may be performed. COMPARISON: [facility], CR, XR LUMBAR SPINE 2-3V, 11/29/2019, 16:36. [facility], MR, L-SPINE WITHOUT CONTRAST, 11/05/2015, 14:15. [facility], MR, MR LUMBAR SPINE WO CON, 06/27/2018, 14:15. FINDINGS: Image quality: Excellent. Alignment and Curvature: There is mild L3-L4 and L4-L5 anterolisthesis secondary to facet hypertrophy. Bone Marrow: Marrow is of normal overall signal. No acute vertebral body compression fractures. Spinal Cord: Conus medullaris terminates at the L1 level. Visualized cord demonstrates normal signal and size. Paraspinous Soft Tissues: No paravertebral masses. L1-L2: Loss of disc signal. Mild, diffuse disc bulge. No central stenosis. Mild bilateral neural foraminal narrowing. No neural compression. L2-L3: Loss of disc signal. Mild, diffuse disc bulge. Mild bilateral facet hypertrophy. Mild ligamentum flavum hypertrophy. Mild narrowing of the central canal. Mild bilateral neural foraminal narrowing. No neural compression. L3-L4: Loss of disc signal. Mild, diffuse disc bulge. Moderate bilateral facet hypertrophy. Mild ligamentum flavum hypertrophy. Moderate narrowing of the central canal. Moderate bilateral neural foraminal narrowing. No neural compression. L4-L5: Loss of disc signal. Mild, diffuse disc bulge. Moderate bilateral facet hypertrophy. Mild to moderate narrowing of the central canal. Mild to moderate bilateral neural foraminal narrowing. No neural compression L5-S1: Loss of disc signal. Mild bilateral facet hypertrophy. No central stenosis. Mild bilateral neural foraminal narrowing. No neural compression. IMPRESSION: 1. Grade 1 L3-L4 and L4-L5 degenerative spondylolisthesis. 2. Multilevel degenerative disease. 3. Multilevel facet arthropathy. 4. No significant central canal narrowing. 5. No significant neural foraminal narrowing. 6. No neural compression. Dictated by: Denise Kaplan MD, PhD on 03/12/2020 at 15:53 Approved by: Denise Kaplan MD, PhD on 03/12/2020 at 15:58
== END ==
PROVIDERS: Family Provider Family Medicine; PCP Family Medicine; Referring Provider Family Medicine; Visit Provider Family Medicine
DX: M54.9 Dorsalgia, unspecified (principal); M51.36 Other intervertebral disc degeneration, lumbar region; M47.816 Spondylosis without myelopathy or radiculopathy, lumbar region; M47.817 Spondylosis without myelopathy or radiculopathy, lumbosacral region; M48.061 Spinal stenosis, lumbar region without neurogenic claudication; M48.07 Spinal stenosis, lumbosacral region; M43.16 Spondylolisthesis, lumbar region; M43.17 Spondylolisthesis, lumbosacral region
CPT/HCPCS: 72148

== ENCOUNTER 2020-07-06 11:21 | Emergency (ER) | payer MEDICARE, SELFPAY ==
[2020-07-06] VITALS (12 sets, daily range): BP systolic 105–173; BP diastolic 58–80; PULSE 54–87; RESP 12–22; TEMP 36.2; O2SAT 93–97; BMI 32.8
--- NOTE | 2020-07-06 11:50 | DI.RAD.S_ITS ---
PROCEDURE: XR CHEST 1V INDICATIONS: chest pain TECHNIQUE: One view of the chest was acquired. COMPARISON: [facility], CR, XR CHEST 1V, 03/01/2019, 11:24. FINDINGS: Overlying EKG wires. Surgical changes and devices: Postsurgical changes of cervical fusion incompletely evaluated. Lungs and pleura: Lungs are clear. No pleural effusions or pneumothorax. Mediastinum: Mediastinal contours appear normal. Heart size is normal. Bones and chest wall: No suspicious bony lesions. Overlying soft tissues appear unremarkable. IMPRESSION: No evidence of an acute cardiopulmonary abnormality. Dictated by: Doug Winston D.O. on 07/06/2020 at 11:08 Approved by: Doug Winston D.O. on 07/06/2020 at 11:08
[2020-07-06 11:56] LABS: Add Manual Diff / Slide Review NO; Basophils Absolute Auto 100 /uL (0-100); Basophils Percent Auto 1.8 % (0-2); Eosinophils Absolute Auto 300 /uL (0-450); Eosinophils Percent Auto 6.3 % (2-4); Hematocrit 44.6 % (36-46); Hemoglobin 14.9 g/dL (12.0-16.0); Lymphocytes Absolute Auto 1500 /uL (1100-4500); Lymphocytes Percent Auto 28.6 % (25-40); Mean Corpuscular HGB Conc 33.5 % (30-36); Mean Corpuscular Hemoglobin 30.2 PG (26-34); Mean Corpuscular Volume 90.2 fL (80-100); Monocytes Absolute Auto 600 /uL (0-900); Monocytes Percent Auto 12.1 % (3-14); Neutrophils Absolute Auto 2700 /uL (1500-7000); Neutrophils Percent Auto 51.2 % (50-75); Platelet Count 219 X10^3/uL (150-400); Red Blood Cell Count 4.95 X10^6/uL (4.0-5.2); Red Cell Distribution Width 13.5 % (11.6-14.8); White Blood Cell Count 5.2 X10^3/uL (4.5-11.0)
[2020-07-06 12:02] LABS: Alanine Aminotransferase 32 IU/L (<35); Albumin 4.1 g/dL (3.5-5.0); Albumin Globulin Ratio 1.3 (1.0-2.8); Alkaline Phosphatase 102 U/L (38-126); Aspartate Aminotransferase 45 IU/L (14-36); BUN Creatinine Ratio 21.2 (6-22); Bilirubin Total 0.4 mg/dL (0.2-1.3); Blood Urea Nitrogen 22 mg/dL (7-17); Calcium 9.3 mg/dL (8.4-10.2); Carbon Dioxide 27 mmol/L (22-32); Chloride 103 mmol/L (98-107); Creatine Kinase 46 U/L (30-135); Estimated Glomerular Filt Rate 51.3 mL/min (>60); Globulin 3.2 g/dL (1.7-4.1); Glucose 128 mg/dL (80-110); HEMOLYSIS < 15 (0-50); Lipase 50 U/L (23-300); Potassium 4.4 mmol/L (3.4-5.1); Sodium 136 mmol/L (137-145); Total Protein 7.3 g/dL (6.3-8.2)
[2020-07-06 12:13] LABS: NT-proBNP (BNP-Adult 18+) 126 pg/mL (<450); Troponin I < 0.012 ng/mL (0.01-0.034)
--- NOTE | 2020-07-06 12:24 | ED_ITS ---
HPI - Chest Pain <JULIA Rendon - Last Filed: 07/06/20 15:02> General Chief Complaint: Chest Pain Stated Complaint: Chest Pain Time Seen by Provider: 07/06/20 11:34 Source: patient Mode of arrival: EMS Limitations: physical limitation History of Present Illness HPI narrative: This is a 80 year female, smoker, who has past medical history significant for disability and uses wheelchair and a walker, hypotension, hypertension (EMR) , hypothyroidism, angina presents to local EMS with with chief complain of resolved non producable mid chest sharp pain. Patient rated pain as 10/10 initially and now it is 0/10. Onset of pain at rest while she was sitting on a chair at 10:25 a.m. and had taken 2 doses of nitroglycerin and full dose of baby aspirin and noticed pain slowly decreased and finally resolved in 20 minutes. Patient denies other cardiac related symptoms such as short of breath, nausea, vomiting, cold sweats. Patient had similar symptoms in the past and had workup done and discharged to home with nitroglycerin for as needed use and thinks her current nitroglycerin medication is . Patient reports chronic right leg swelling. Patient does not have travel rn at this time and is seen Dr. Kulkarni after Dr. Bender retired. Related Data Home Medications Medication Instructions Recorded Confirmed alprazolam 0.25 mg PO TID PRN #0 tab 02/26/13 03/01/19 fluticasone propionate 1 spray INTRANASAL BID #0 spray 02/26/13 03/01/19 oxybutynin chloride 5 mg PO BID #0 07/29/16 03/01/19 aspirin 4 tab PO DAILY #0 08/18/16 03/01/19 furosemide 20 mg PO DAILY #0 08/18/16 03/01/19 loratadine [Claritin] 10 mg PO DAILY #0 08/18/16 03/01/19 propranolol 20 mg PO TID #0 08/18/16 03/01/19 [PREGNENOLONE] 50 mg PO DAILY #0 01/27/17 03/01/19 echinacea 400 mg PO QID #0 01/27/17 03/01/19 glucosamine HLi-emb-azaefbpvmx 2 tab PO DAILY #0 01/27/17 03/01/19 [TripleFlex] melatonin 10 mg PO BEDTIME PRN #0 01/27/17 03/01/19 meloxicam [Mobic] 7.5 mg PO QPM #0 01/27/17 03/01/19 meloxicam [Mobic] 15 tab PO AMCC #0 01/27/17 03/01/19 omega 8-bgg-mxf-fish oil [Fish Oil] 1,000 mg PO BID #0 01/27/17 03/01/19 prasterone (dhea) [DHEA] 100 mg PO DAILY #0 01/27/17 03/01/19 pseudoephedrine HCl [Sudafed 12 120 mg PO Q12HP PRN #0 01/27/17 03/01/19 Hour] albuterol sulfate [ProAir HFA] 2 puff INHALATION Q4H PRN 03/01/19 03/01/19 ascorbic acid (vitamin C) 1 g PO Q6H 03/01/19 03/01/19 calcium carbonate-vitamin D3 4 tab PO DAILY 03/01/19 03/01/19 cholecalciferol (vitamin D3) 15,000 unit PO DAILY 03/01/19 03/01/19 [Vitamin D3] cyanocobalamin (vitamin B-12) 2,000 mcg PO DAILY 03/01/19 03/01/19 [Vitamin B-12] gabapentin 100 mg PO TID 03/01/19 03/01/19 ketoconazole 1 applic TOPICAL DAILY PRN 03/01/19 03/01/19 levothyroxine 125 mcg PO DAILY 03/01/19 03/01/19 meclizine 25 mg PO Q8H PRN 03/01/19 03/01/19 multivitamin with minerals 1 tab PO DAILY 03/01/19 03/01/19 omeprazole 40 mg PO BID 03/01/19 03/01/19 ranitidine HCl 150 mg PO BEDTIME 03/01/19 03/01/19 nitroglycerin 0.4 mg SUBLINGUAL Q5M PRN 07/06/20 07/06/20 Allergies Allergy/AdvReac Type Severity Reaction Status Date / Time morphine [MORPHINE] Allergy Unknown Unverified 09/21/17 11:58 oxycodone [OXYCODONE] Allergy Unknown Unverified 09/21/17 11:58 codeine [CODEINE] AdvReac Intermediate VERTIGO Unverified 04/01/18 10:53 hydrocodone [HYDROCODONE] AdvReac Intermediate VERTIGO Unverified 04/01/18 10:53 tramadol [TRAMADOL] AdvReac Intermediate NAUSEA Unverified 04/01/18 10:53 gabapentin AdvReac Mild Doesn't Verified 04/01/18 10:53 work Review of Systems <JULIA Rendon - Last Filed: 07/06/20 15:02> Review of Systems Narrative: General: Denies fever, chills, fatigue, malaise, sweats. HEENT: Denies sinus pain, ear pain, sore throat, difficulty swallowing, dizziness. Respiratory: Denies dyspnea, cough, wheezing, hemoptysis, sputum. Cardiovascular: See HPI Gastrointestinal: Denies nausea, vomiting, abdominal pain, diarrhea, constipation, melena. : Denies dysuria, frequency, incontinence, hematuria, urinary retention. Skin: Denies rash, skin lesions, or other. Psychiatric: No concerning psychosocial issues. 12-point review of systems is negative except for those stated above. Patient History <JULIA Rendon - Last Filed: 07/06/20 15:02> Medical History (Updated 07/06/20 @ 14:15 by JULIA Rendon) Gastroesophageal reflux disease Hypertension Hypothyroid Surgical History No pertinent past surgical history Social History Smoking Status: Current every day smoker Smoking Status: Current every day smoker Substance Use Type: does not use Exam <JULIA Rendon - Last Filed: 07/06/20 15:02> Narrative Exam Narrative: GEN: Alert, oriented x 3, well appearing and nourished, and in no acute distress. Head: Normal cephalic, atraumatic. No scalp or temporal tenderness, palpable mass or rash. EYES: Pupils are equal, round, and reactive to light and accommodation. Extraoc ular muscles are intact bilaterally. There is no subconjunctival hemorrhage, exudate and sclera non-icteric. ENT: Hearing grossly intact. Mucous membrane moist, no mucosal lesion. Throat without erythema, tonsillar hypertrophy or exudate. Uvula in midline, airway patent. Neck: Trachea in midline. No JVD, non-tender without lymphadenopathy. No masses or thyroid megaly. Supple, non-tender and no meningeal signs. CARDIAC: Normal regular rate and rhythm without murmurs, gallops, or rubs. No chest wall tenderness. No peripheral edema, cyanosis or pallor. Capillary refill is less than 2 seconds. RESPIRATORY: Lungs are clear to auscultate bilaterally. No cough, wheezes, rales, or rhonchi. No stridor, respiratory distress, increase work of breathing, or accessary muscle used. ABD: Abdomen soft, nontender and non-distended. No guarding or rebound tenderness to palpate. Bowel sounds are normal in all 4 quadrants. There is no palpable masses or organomegaly. SKIN: Warm, dry, normal color for patient. No erythema, lesions or rash over visible areas. BACK: Nontender without deformity or crepitance. No flank tenderness. NEUROLOGICAL: Alert and oriented to place, time and person. Sensation and motor function intact bilaterally. No facial droops, dysphasia. PSYCHIATRIC: Good judgement and reason, without hallucinations, abnormal affect or abnormal behaviors during the examination. Patient is not suicidal. Initial Vital Signs Initial Vital Signs: Vital Signs Pulse Rate 66 07/06/20 11:20 Respiratory Rate 16 07/06/20 11:20 Blood Pressure 105/80 07/06/20 11:20 Pulse Oximetry 96 07/06/20 11:20 <Magy Hare DO - Last Filed: 07/06/20 19:03> Initial Vital Signs Initial Vital Signs: Vital Signs Pulse Rate 66 07/06/20 11:20 Respiratory Rate 16 07/06/20 11:20 Blood Pressure 105/80 07/06/20 11:20 Pulse Oximetry 96 07/06/20 11:20 Scores <[facility] - Last Filed: 07/06/20 15:02> GCS Sakshi coma scale eye opening: Spontaneous [place] coma scale verbal response: Orientated Sakshi coma scale motor response: Obey commands Sakshi coma scale total score: 15 HEART Score Heart Score history: Slightly Suspicious Heart Score EKG: Normal Heart Score Age: > or = 65 years old Heart Score risk factors: 1-2 risk factors Heart Score troponin: < or = to normal limit Heart Score Total: 3 Course <ALLI RendonP - Last Filed: 07/06/20 15:02> Orders Ordered: ED Orders 07/06/20 11:25 Complete Blood Count AUTO DIFF Stat Comprehensive Metabolic Panel Stat Lipase Stat NT-proBNP (BNP-Adult 18+) Stat Troponin & CK Cardiac Panel Stat 07/06/20 11:50 XR chest 1V Stat 07/06/20 14:20 cardiac panel [Troponin & CK Cardiac Panel] Stat Consultations Consultation #1: Consulted Dr. Puga (travel rn) for consult. She recommended patient to be admitted for observation for trending labs and further cardiac work up. Calling Dr. Kulkarni for admission/consult. Time: 13:10 Consultation #2: Dr. Kulkarni called back but reports not certified registered nurse practitioner for FP today. Recommended call Dr. Pack. Time: 14:00 Consultation #3: Dr. Pack called back and she kindly accepted the patient's care for observation for chest pain workup with the troponin trending and stress test. Time: 14:16 Vital Signs Vital signs: Vital Signs - 8 hr 07/06/20 11:20 07/06/20 11:29 07/06/20 11:30 Temperature Pulse Rate 66 65 64 Respiratory Rate 16 18 12 Blood Pressure 105/80 105/80 Pulse Oximetry 96 95 95 07/06/20 11:45 07/06/20 12:00 07/06/20 12:30 Temperature 97.1 F L Pulse Rate 56 L 66 Respiratory Rate 14 22 Blood Pressure 110/58 L 118/59 L Pulse Oximetry 93 96 07/06/20 13:00 07/06/20 13:30 07/06/20 14:00 Temperature Pulse Rate 59 L 54 L 64 Respiratory Rate 16 14 15 Blood Pressure 107/59 L 173/75 H Pulse Oximetry 95 95 97 07/06/20 14:01 Temperature Pulse Rate 68 Respiratory Rate 13 Blood Pressure 124/72 Pulse Oximetry 96 <Magy Hare DO - Last Filed: 07/06/20 19:03> Orders Ordered: ED Orders 07/06/20 11:25 Complete Blood Count AUTO DIFF Stat Comprehensive Metabolic Panel Stat Lipase Stat NT-proBNP (BNP-Adult 18+) Stat Troponin & CK Cardiac Panel Stat 07/06/20 11:50 XR chest 1V Stat 07/06/20 14:20 cardiac panel [Troponin & CK Cardiac Panel] Stat Vital Signs Vital signs: Vital Signs - 8 hr 07/06/20 11:20 07/06/20 11:29 07/06/20 11:30 Temperature Pulse Rate 66 65 64 Respiratory Rate 16 18 12 Blood Pressure 105/80 105/80 Pulse Oximetry 96 95 95 07/06/20 11:45 07/06/20 12:00 07/06/20 12:30 Temperature 97.1 F L Pulse Rate 56 L 66 Respiratory Rate 14 22 Blood Pressure 110/58 L 118/59 L Pulse Oximetry 93 96 07/06/20 13:00 07/06/20 13:30 07/06/20 14:00 Temperature Pulse Rate 59 L 54 L 64 Respiratory Rate 16 14 15 Blood Pressure 107/59 L 173/75 H Pulse Oximetry 95 95 97 07/06/20 14:01 Temperature Pulse Rate 68 Respiratory Rate 13 Blood Pressure 124/72 Pulse Oximetry 96 MDM - Chest Pain <Serge JULIA Hurst - Last Filed: 07/06/20 15:02> Differential Diagnosis Differential diagnosis: Likely stable angina, unstable angina pectoris, st elevation myocardial infarction, costochondritis and chest pain Medical Records Data Attestation: I reviewed the patient's medical records. Lab Data Attestation: I reviewed the patient's lab results. Result diagrams: 07/06/20 11:25 07/06/20 11:25 Labs: Lab Results 07/06/20 07/06/20 Range/Units 11:25 11:25 WBC 5.2 (4.5-11.0) X10^3/uL RBC 4.95 (4.0-5.2) X10^6/uL Hgb 14.9 (12.0-16.0) g/dL Hct 44.6 (36-46) % MCV 90.2 (80-100) fL MCH 30.2 (26-34) PG MCHC 33.5 (30-36) % RDW 13.5 (11.6-14.8) % Plt Count 219 (150-400) X10^3/uL Neut % (Auto) 51.2 (50-75) % Lymph % (Auto) 28.6 (25-40) % [place] % (Auto) 12.1 (3-14) % Eos % (Auto) 6.3 H (2-4) % Baso % (Auto) 1.8 (0-2) % Neut # (Auto) 2700 (0159-2841) /uL Lymph # (Auto) 1500 (8029-9489) /uL [place] # (Auto) 600 (0-900) /uL Eos # (Auto) 300 (0-450) /uL Baso # (Auto) 100 (0-100) /uL Sodium 136 L (137-145) mmol/L Potassium 4.4 (3.4-5.1) mmol/L Chloride 103 (98-107) mmol/L Carbon Dioxide 27 (22-32) mmol/L BUN 22 H (7-17) mg/dL Creatinine 1.04 (0.52-1.04) mg/dL Estimated GFR 51.3 L (>60) mL/min BUN/Creatinine Ratio 21.2 (6-22) Glucose 128 H (80-110) mg/dL Calcium 9.3 (8.4-10.2) mg/dL Total Bilirubin 0.4 (0.2-1.3) mg/dL AST 45 H (14-36) IU/L ALT 32 (<35) IU/L Alkaline Phosphatase 102 (38-126) U/L Total Creatine Kinase 46 (30-135) U/L CK-MB (CK-2) TNP CK-MB (CK-2) Rel Index TNP Troponin I < 0.012 (0.01-0.034) ng/mL NT-Pro-B Natriuret Pep 126 (<450) pg/mL Total Protein 7.3 (6.3-8.2) g/dL Albumin 4.1 (3.5-5.0) g/dL Globulin 3.2 (1.7-4.1) g/dL Albumin/Globulin Ratio 1.3 (1.0-2.8) Lipase 50 (23-300) U/L Imaging Data Chest x-ray: Radiologist's Impression: [address] [id number] ReportSigned Patient: Medina Roldan [facility]#: [id number]: 2Acct:[id number]/Sex: 80 / FDate of Service: 07/06/20Loc: EDAccession Number: [id number] Procedure: XR chest 1V Ordering Provider: Serge Hurst PROCEDURE: XR CHEST 1V INDICATIONS: chest pain TECHNIQUE: One view of the chest was acquired. COMPARISON: [facility], , XR CHEST 1V, 03/01/2019, 11:24. FINDINGS: Overlying EKG wires. Surgical changes and devices: Postsurgical changes of cervical fusion incompletely evaluated. Lungs and pleura: Lungs are clear. No pleural effusions or pneumothorax. Mediastinum: Mediastinal contours appear normal. Heart size is normal. Bones and chest wall: No suspicious bony lesions. Overlying soft tissues appear unremarkable. IMPRESSION: No evidence of an acute cardiopulmonary abnormality. Dictated by: Doug Winston D.O. on 07/06/2020 at 11:08 Approved by: Doug Winston D.O. on 07/06/2020 at 11:08 ECG Data Attestation: I personally reviewed and interpreted this ECG as follows: Prior ECG tracings: available for review Interpretation: Sinus rhythm rate at 63. Left dominant axis. IL interval 166, QRS duration 96, QT/QTC 420/429. Q waves in lead II, aVF MDM Narrative Medical decision making narrative: NUC med Stress test on 04/12/19 shows moderate to severe fixed apical defect De suggest prior nontransmural infarction but artifact cannot be excluded. No ischemia. Left ventricle stress ejection fraction is 78%. Normal LV size, wall motion. Compare to nook stress done on August 16, 2016, fixed apical defect is more pronounced on this study. This is a 80-year-old female who denies previous cardiac history but she is taking propanolol (tremors), lasix, a full dose of ASA, NTG (PRN) presents to ED with chief complain of mid sternal sharp pain 10/10 which lasted for 20 minutes while on rest sitting on a recliner. Patient reports pain relieved after taking 2 doses of nitroglycerin that she had thinks which is . Cardiac enzymes 1st was negative. EKG sinus rhythm but possible old infarct. Physical exam was unremarkable. Patient has been symptoms free while in ED. consulted Dr. Puga and Dr. Pack for admission for further cardiac work up and stress test. Discussed plan for admission for observation for these tests and patient verbalized understanding and agreement with the treatment plan. <Magy Hare, - Last Filed: 07/06/20 19:03> Lab Data Attestation: I reviewed the patient's lab results. Labs: Lab Results 07/06/20 07/06/20 Range/Units 11:25 11:25 WBC 5.2 (4.5-11.0) X10^3/uL RBC 4.95 (4.0-5.2) X10^6/uL Hgb 14.9 (12.0-16.0) g/dL Hct 44.6 (36-46) % MCV 90.2 (80-100) fL MCH 30.2 (26-34) PG MCHC 33.5 (30-36) % RDW 13.5 (11.6-14.8) % Plt Count 219 (150-400) X10^3/uL Neut % (Auto) 51.2 (50-75) % Lymph % (Auto) 28.6 (25-40) % [place] % (Auto) 12.1 (3-14) % Eos % (Auto) 6.3 H (2-4) % Baso % (Auto) 1.8 (0-2) % Neut # (Auto) 2700 (7207-0888) /uL Lymph # (Auto) 1500 (7905-2787) /uL [place] # (Auto) 600 (0-900) /uL Eos # (Auto) 300 (0-450) /uL Baso # (Auto) 100 (0-100) /uL Sodium 136 L (137-145) mmol/L Potassium 4.4 (3.4-5.1) mmol/L Chloride 103 (98-107) mmol/L Carbon Dioxide 27 (22-32) mmol/L BUN 22 H (7-17) mg/dL Creatinine 1.04 (0.52-1.04) mg/dL Estimated GFR 51.3 L (>60) mL/min BUN/Creatinine Ratio 21.2 (6-22) Glucose 128 H (80-110) mg/dL Calcium 9.3 (8.4-10.2) mg/dL Total Bilirubin 0.4 (0.2-1.3) mg/dL AST 45 H (14-36) IU/L ALT 32 (<35) IU/L Alkaline Phosphatase 102 (38-126) U/L Total Creatine Kinase 46 (30-135) U/L CK-MB (CK-2) TNP CK-MB (CK-2) Rel Index TNP Troponin I < 0.012 (0.01-0.034) ng/mL NT-Pro-B Natriuret Pep 126 (<450) pg/mL Total Protein 7.3 (6.3-8.2) g/dL Albumin 4.1 (3.5-5.0) g/dL Globulin 3.2 (1.7-4.1) g/dL Albumin/Globulin Ratio 1.3 (1.0-2.8) Lipase 50 (23-300) U/L ECG Data Attestation: I personally reviewed and interpreted this ECG as follows: Interpretation: Sinus rhythm, nonspecific change with Q-wave in lead [address] elevation. ST segments appears similar to prior from 03/01/2019. Discharge Plan Departure Patient Disposition: Left Against Medical Advice Clinical Impression: Chest pain Qualifiers: Chest pain type: unspecified Qualified Code(s): R07.9 - Chest pain, unspecified <Magy Hare DO - Last Filed: 07/06/20 19:03> Cosign ED Attending Cosignature Attestation: I was immediately available in the depa rtment for consultation. Documentation has been reviewed. Patient case discussed, EKG reviewed. Plan for observation with stress testing tomorrow in patient with chest pain that resolved with aspirin and nitro at home that was nonexertional. Patient has not had any additional symptoms.. Patient continues to be chest pain free with no acute EKG findings, negative troponin x2 no other major lab abnormalities other than mildly elevated AST. And no acute CXR findings.
--- NOTE | 2020-07-06 14:30 | PC.NURSE ---
pt asking why she has to stay as observation pt when all tests have been normal, explained to pt that it's not normal to have sudden chest pain and is prudent to stay in the hospital if it happens again. Pt says she is refusing to stay. Provider notified.
[2020-07-06 14:42] LABS: Creatine Kinase 41 U/L (30-135)
[2020-07-06 14:55] LABS: Troponin I < 0.012 ng/mL (0.01-0.034)
== END 2020-07-06 14:51 | disposition left against medical advice (07) ==
LOC: ED 11:34 → AC 14:15
PROVIDERS: Emergency Provider Nurse Practitioner Family; Referring Provider Nurse Practitioner Family
DX: R07.9 Chest pain, unspecified (principal); I10 Essential (primary) hypertension; E03.9 Hypothyroidism, unspecified; K21.9 Gastro-esophageal reflux disease without esophagitis
CPT/HCPCS: 36415; 71045; 80053; 82550; 83690; 83880; 84484; 85025; 93005; 93010; 99283; 99284

== ENCOUNTER → 2020-07-24 15:03 | Outpatient (CLI) | payer MEDICARE, SELFPAY ==
--- NOTE | 2020-07-24 15:05 | DI.MG.S_ITS ---
BILATERAL DIGITAL SCREENING MAMMOGRAM 3D/2D WITH CAD: 07/24/2020 CLINICAL: Routine screening. Comparison is made to exams dated: 05/23/2019 mammogram, 01/13/2018 mammogram, and 12/31/2016 mammogram - [facility]. There are scattered fibroglandular elements in both breasts. Current study was also evaluated with a Computer Aided Detection (CAD) system. There are benign calcifications in both breasts. No significant masses, calcifications, or other findings are seen in either breast. There has been no significant interval change. IMPRESSION: BENIGN There is no mammographic evidence of malignancy. A 1 year screening mammogram is recommended. This exam was interpreted at Station ID: [id number]. NOTE: For mammograms, a report in lay terms will be sent to the patient. Approximately 15% of breast malignancies will not be visualized mammographically. In the management of a palpable breast mass, a negative mammogram must not discourage biopsy of a clinically suspicious lesion. Electronically Signed By: Sabino martines/christoph:07/24/2020 16:27:26 letter sent: Normal Exam ACR BI-RADS Category 2: Benign Finding(s) [id number]
== END ==
PROVIDERS: Referring Provider Student in an Organized Health Care Education/Training Program; Visit Provider Student in an Organized Health Care Education/Training Program
DX: Z12.31 Encounter for screening mammogram for malignant neoplasm of breast (principal)
CPT/HCPCS: 77063; 77067

== ENCOUNTER → 2020-09-05 14:12 | Outpatient (CLI) | payer MEDICARE, SELFPAY ==
--- NOTE | 2020-09-05 14:14 | DI.RAD.S_ITS ---
PROCEDURE: XR DEXA AXIAL SKELETON INDICATIONS: Asymptomatic menopausal state COMPARISON: None. FINDINGS: This blank DEXA report has been sent in error by the PACS system. The correct and complete report will be forthcoming in 1-2 days. Thank you for your patience and understanding. Dictated by: Denise Kaplan MD, PhD on 09/05/2020 at 15:12 Approved by: Denise Kaplan MD, PhD on 09/05/2020 at 15:12
== END ==
PROVIDERS: PCP Family Medicine; Referring Provider Family Medicine; Visit Provider Family Medicine
DX: M85.851 Other specified disorders of bone density and structure, right thigh (principal); Z78.0 Asymptomatic menopausal state; Z72.0 Tobacco use
CPT/HCPCS: 77080